=== PATIENT | male | born 1965 | race Caucasian/White ===

== ENCOUNTER 2019-06-27 15:27 | Emergency (ER) | payer SELFPAY ==
[2019-06-27] MEDS ORDERED: Clindamycin CAP* 150 MG PO ONE (15:53)
--- NOTE | 2019-06-27 15:54 | UC ---
Dental HPI - HPI Summary HPI Summary: 54-year-old male comes in with a chief complaint of dental pain and facial swelling on the left side. This is been going on for days. Pain and swelling is getting worse. He's tried ibuprofen but is not helping much with the pain anymore. Patient does feel a little flushed. - History of Current Complaint Chief Complaint: UCDentalProblem Stated Complaint: TOOTH ACHES Time Seen by Provider: 06/27/19 15:35 Pain Intensity: 10 - Allergies/Home Medications Allergies/Adverse Reactions: Allergies Allergy/AdvReac Type Severity Reaction Status Date / Time Penicillins Allergy Intermediate Swelling Verified 06/27/19 15:39 Of Face,Lips,& Throat Home Medications: Home Medications Metoprolol Succinate 100 mg PO DAILY 06/27/19 [History Confirmed 06/27/19] PMH/Surg Hx/FS Hx/Imm Hx Previously Healthy: Yes Endocrine History: Diabetes Cardiovascular History: Hypertension - Surgical History Surgical History: Yes Surgery Procedure, Year, and Place: 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 hand r/t injury. 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 - Family History Known Family History: Negative: Renal Disease, Blood Disorder - Social History Alcohol Use: Rare Substance Use Type: None Smoking Status (MU): Never Smoked Tobacco Review of Systems All Other Systems Reviewed And Are Negative: Yes Constitutional: Positive: Other - SEE HPI Skin: Positive: Negative Eyes: Positive: Negative ENT: Positive: Dental Pain Respiratory: Positive: Negative Cardiovascular: Positive: Negative Gastrointestinal: Positive: Negative Motor: Positive: Negative Neurovascular: Positive: Negative Musculoskeletal: Positive: Negative Neurological: Positive: Negative Psychological: Positive: Negative Is Patient Immunocompromised?: No Physical Exam Triage Information Reviewed: Yes Appearance: Well-Appearing, Well-Nourished, Pain Distress - MILD Vital Signs: Initial Vital Signs Temp 97.9 F 06/27/19 15:32 Pulse 78 06/27/19 15:32 Resp 18 06/27/19 15:32 Pulse Ox 100 06/27/19 15:32 Vital Signs Reviewed: Yes Eye Exam: Normal Eyes: Positive: Conjunctiva Clear ENT: Positive: Pharynx normal, TMs normal Dental: Positive: Other: - Extensive dental decay left lower molars with gingival swelling. There is some swelling on the left cheek. Posterior pharynx is open. Normal voice. Respiratory: Positive: Lungs clear Cardiovascular: Positive: RRR Musculoskeletal: Positive: Strength Intact, ROM Intact Neurological: Positive: Alert, Muscle Tone Normal Psychological: Positive: Age Appropriate Behavior Skin Exam: Normal Dental Complaint Course/Dx - Differential Dx/Diagnosis Provider Diagnosis: Tooth ache Discharge ED - Sign-Out/Discharge Documenting (check all that apply): Patient Departure All imaging exams completed and their final reports reviewed: No Studies - Discharge Plan Condition: Stable Disposition: HOME Prescriptions: Clindamycin Cap(NF) [Clindamycin Cap 300 mg Cap(NF)] 300 mg PO Q6H #40 cap HYDROcodone/ACETAMIN 5-325 MG* [[place] 5-325 TAB*] 1 tab PO Q4H PRN #15 tab MDD 6 PRN Reason: Pain - Moderate Patient Education Materials: Toothache (ED) Referrals: Marek Diaz MD [Primary Care Provider] - Additional Instructions: FOLLOW UP WITH YOUR DENTIST. GET REEVALUATED SOONER IF NOT IMPROVED OR WORSE OR ANY QUESTIONS OR CONCERNS. - Billing Disposition and Condition Condition: STABLE Disposition: Home
== END 2019-06-27 16:01 | disposition home or self-care (01) ==
LOC: UCEAST 15:27
DX: K08.89 Other specified disorders of teeth and supporting structures (principal); E11.9 Type 2 diabetes mellitus without complications; I10 Essential (primary) hypertension; Z88.0 Allergy status to penicillin; Z79.899 Other long term (current) drug therapy
CPT/HCPCS: 99212; A9270-GY; G0463